=== PATIENT | female | born 1975 | race Asian ===

== ENCOUNTER 2019-01-05 06:45 | Emergency (ER) | payer OTHER ==
[~2019-01-05] VITALS: Ht 160 cm; Wt 63.5 kg
[2019-01-05 06:58] VITALS: Ht 160 cm; Wt 63.5 kg
[2019-01-05 10:15] VITALS: BP 152/99
== END 2019-01-05 10:15 | disposition home or self-care (01) ==
LOC: ED 06:45
DX: N39.0 Urinary tract infection, site not specified (principal); R11.2 Nausea with vomiting, unspecified; Z87.42 Personal history of other diseases of the female genital tract; Z88.8 Allergy status to other drugs, medicaments and biological substances
CPT/HCPCS: J2270; Q0162